=== PATIENT | female | born 1995 | race Caucasian/White ===

== ENCOUNTER 2016-07-23 18:40 | Emergency (ER) | payer OTHER ==
[~2016-07-23] VITALS: Ht 157.5 cm; Wt 58.2 kg
[2016-07-23 18:46] VITALS: BP 114/75; PULSE 95; RESP 16; TEMP 98.7; O2SAT 99
[2016-07-23] MEDS ORDERED: Birth control pill PO (19:16)
[2016-07-23] MEDS ORDERED: LIDOCAINE 1%/EPINEPHrine 1:100,000 SOLN 20 ML VIAL INFIL ONE (19:30)
--- NOTE | 2016-07-23 20:19 | PD ---
HPI Chief Complaint: Skin Problem Time Seen by Provider: 19:15 Travel History International Travel<30 days: No Contact w/Intl Traveler<30days: No Traveled to known affect area: No History of Present Illness HPI 21-year-old female presents the emergency department with abscess/ ingrown hair to the left upper inner thigh just below the inguinal area for the past 4 days. Patient has been on Keflex for 2 days without improvement. She denies fever, chills, but states there has been a small amount of drainage from the area. She has no known drug allergies. PFS Past Medical History Medical History: Denies Significant Hx Tetanus Vaccination: < 5 Years Influenza Vaccination: Yes ?: Not LMP: 07/04/16 Past Surgical History Surgical History: No Previous Surgery Social History Alcohol Use: Yes (Occ.) Tobacco Use: No Substance Use: No Allergies-Medications (Allergen,Severity, Reaction): Coded Allergies: No Known Allergies (Unverified , 07/23/16) Reported Meds & Prescriptions Reported Meds & Active Scripts Active Reported [ control pill] 1 Tab PO DAILY Review of Systems Except as stated in HPI: all other systems reviewed are Neg General / Constitutional: No: Fever Eyes: No: Visual changes HENT: No: Headaches Cardiovascular: No: Chest Pain or Discomfort Respiratory: No: Shortness of Breath Gastrointestinal: No: Abdominal Pain Genitourinary: No: Dysuria Musculoskeletal: No: Pain Skin: No Rash Neurologic: No: Weakness Psychiatric: No: Depression Endocrine: No: Polydipsia Hematologic/Lymphatic: No: Easy Bruising Physical Exam Narrative GENERAL: Patient appears in no acute distress. SKIN: Warm and dry. Normal color. Normal turgor. Patient hasn't oblong indurated raised abscess with probable local lymphadenopathy in the left inguinal fold/upper middle thigh. HEAD: Atraumatic. Normocephalic. EYES: Pupils equal and round. No scleral icterus. No injection or drainage. ENT: No nasal bleeding or discharge. Mucous membranes pink and moist. Pharynx is clear. NECK: Trachea midline. Supple nontender. CARDIOVASCULAR: Regular rate and rhythm. RESPIRATORY: No accessory muscle use. Clear to auscultation. Breath sounds equal bilaterally. GASTROINTESTINAL: Abdomen soft, non-tender, nondistended. Hepatic and splenic margins not palpable. MUSCULOSKELETAL: Extremities without clubbing, cyanosis, or edema. No obvious deformities. NEUROLOGICAL: Awake and alert. No obvious cranial nerve deficits. Motor grossly within normal limits. Five out of 5 muscle strength in the arms and legs. Normal speech. PSYCHIATRIC: Appropriate mood and affect; insight and judgment normal. Data Data Last Documented VS Vital Signs Date Time Temp Pulse Resp B/P Pulse Ox O2 Delivery O2 Flow Rate FiO2 07/23/16 18:46 98.7 95 16 114/75 99 Orders Lidocai-Epi 1%-1:100,000 Inj (Xylocaine- (07/23/16 19:30) [facility] Medical Decision Making Medical Screen Exam Complete: Yes Emergency Medical Condition: Yes Differential Diagnosis Lymphadenitis. Cellulitis. Abscess. Narrative Course Patient is medically stable at time of exam. I&D is performed without difficulty. Patient is placed on Bactrim DS twice a day 5 days. Patient is to continue the Keflex as previous. Patient use warm compresses and follow up if symptoms do not improve or worsen in any way. Procedures Procedure Narrative After the risks and benefits were discussed the following procedure was performed: INCISION AND DRAINAGE OF ABSCESS: The area was prepped and was sterilely draped. A subcutaneous wheal of 1% Xylocaine with epi with a total number 3 mL was used to anesthetize the area. The area was properly anesthetized. A number 11 scalpel was used to make a 1-cm incision across the area of the abscess. The abscess was drained an irrigated with normal saline. Sterile dressing applied. Diagnosis Primary Impression: Abscess Referrals: Primary Care Physician Patient Instructions: Abscess Incision and Drainage (ED), General Instructions Additional Instructions: I&D is performed without difficulty. Patient is placed on Bactrim DS twice a day 5 days. Patient is to continue the Keflex as previous. Patient use warm compresses and follow up if symptoms do not improve or worsen in any way. Med/Other Pt SpecificInfo: Prescription(s) given Disposition: 01 DISCHARGE HOME Condition: Stable Henry Gomez July 23, 2016 20:19
[2016-07-23] MEDS ORDERED: BACT800T5 PO (20:20)
== END 2016-07-23 20:31 | disposition home or self-care (01) ==
LOC: PHED 18:40 → PHEFT 20:31
DX: L02.416 Cutaneous abscess of left lower limb (principal)
CPT/HCPCS: 10060